=== PATIENT | male | born 1955 | race Caucasian/White ===

== ENCOUNTER 2017-08-28 12:41 | Day surgery (SDC) | payer BC ==
[~2017-08-28] VITALS: Ht 188 cm; Wt 152.2 kg
[~2017-08-28 12:41] MED LIST: ACCUPRIL10 MG PO; AMOX TR-K CLV1 EAC4 PO; ASPIR-TRIN325 M1 PO; ATORVASTATIN CA80 MG PO; CARDURA2 M1 PO; CEFTIN500 MG PO; COREG25 M1 PO; Cardura PO; Coreg PO; DIGOX250 MCG PO; DOXYCYCLINE HY100 MG PO; FUROSEMIDE40 MG PO; GLUCOPHAGE1000 MG PO; GLUCOPHAGE500 MG PO; HYDROCODON-ACE1 EAC7 PO; JANUVIA100 MG PO; LANOXIN,DIGIT0.25 MG PO; LANTUS 3 M100 UNITS1 SC; LIPITOR40 MG PO; NEXIUM20 MG PO; PIOGLITAZONE HC45 MG PO; PRADAXA150 MG PO; Pradaxa PO; ZITHROMAX500 MG PO
[2017-08-28] MEDS ORDERED: ALL DAY ALLERGY10 M3 PO (13:38)
[2017-08-28 13:42] VITALS: BP 142/65
[2017-08-28 20:45] VITALS: BP 120/67
[2017-08-28 21:20] VITALS: BP 181/92
[2017-09-02] MEDS ORDERED: LEVAQUIN500 MG PO (09:29)
[2017-09-02] MEDS ORDERED: CEPHALEXIN500 MG PO (09:31)
[2017-09-02] MEDS ORDERED: VITAMIN E400 UNIT PO (09:32)
== END 2017-08-28 21:25 | disposition home or self-care (01) ==
LOC: SDC 12:41
PROVIDERS: Surgery
DX: R13.10 Dysphagia, unspecified (principal); I87.8 Other specified disorders of veins; C76.0 Malignant neoplasm of head, face and neck; I25.10 Atherosclerotic heart disease of native coronary artery without angina pectoris; I48.91 Unspecified atrial fibrillation; Z95.5 Presence of coronary angioplasty implant and graft; I10 Essential (primary) hypertension; E78.5 Hyperlipidemia, unspecified; E11.9 Type 2 diabetes mellitus without complications; Z79.84 Long term (current) use of oral hypoglycemic drugs; Z87.891 Personal history of nicotine dependence; E66.01 Morbid (severe) obesity due to excess calories; Z68.41 Body mass index [BMI] 40.0-44.9, adult; Z79.82 Long term (current) use of aspirin
CPT/HCPCS: 82948; 93005; C1751; J0690; J2250

== ENCOUNTER → 2018-02-05 | Outpatient (CLI) | payer BC ==
[~2018-02-05] MED LIST changes: +ALL DAY ALLERGY10 M3 PO; +CEPHALEXIN500 MG PO; +LEVAQUIN500 MG PO; +MULTIVITAMIN1 EAC2 PO; +VITAMIN E400 UNIT PO
== END | disposition home or self-care (01) ==
LOC: AMB 08:43
DX: Z45.2 Encounter for adjustment and management of vascular access device (principal); Z93.1 Gastrostomy status; Z92.3 Personal history of irradiation; Z92.21 Personal history of antineoplastic chemotherapy; Z85.89 Personal history of malignant neoplasm of other organs and systems